=== PATIENT | female | born 1955 | race Caucasian/White ===

== ENCOUNTER → 2017-02-08 | Outpatient (CLI) | payer MEDICARE ==
[~2017-02-08] MED LIST: ASPIRIN EC81 MG PO; CYMBALTA60 MG PO; LISINOPRIL-HCT1 EAC1 PO; LOPID600 MG PO; NAPROXEN500 MG PO; NEURONTIN300 MG PO; NORCO 7.5-3251 EACH PO; PAXIL20 MG PO; VITAMIN D1000 UNIT PO; XANAX1 MG PO
== END | disposition disaster alternative care site (69) ==
LOC: GRAD 15:20
DX: M16.11 Unilateral primary osteoarthritis, right hip (principal)

== ENCOUNTER → 2017-03-25 | Outpatient (CLI) | payer MEDICARE, OTHER | LOC: GNJRC 03-24 11:00 | DX: Z01.818 Encounter for other preprocedural examination (principal) ==